=== PATIENT | male | born 1995 | race Caucasian/White ===

== ENCOUNTER 2018-03-02 15:24 | Emergency (ER) | payer OTHER, MEDICAID, SELFPAY ==
[2018-03-02 15:54] VITALS: BP 121/81; PULSE 128; RESP 20; TEMP 37.3; O2SAT 95; BMI 28.5
[2018-03-02 16:01] VITALS: PULSE 118; RESP 12; O2SAT 98
[2018-03-02] MEDS: ALBUTEROL/IPRATROPIUM 3 ML AMPUL INH (16:03)
--- NOTE | 2018-03-02 16:05 | DI.RAD.S_ITS ---
PROCEDURE: XR CHEST 1V INDICATIONS: cough sob TECHNIQUE: One view of the chest was acquired. COMPARISON: None. FINDINGS: Surgical changes and devices: None. Lungs and pleura: There are diffuse reticular opacities throughout both lungs. Focal pulmonary opacities are present within the right lower lung and the left midlung. Focal pulmonary opacities are present at the right medial lung base as well. There is a small right pleural effusion. No pneumothorax. Mediastinum: Mediastinal contours appear normal. Heart size is normal. Bones and chest wall: No suspicious bony lesions. Overlying soft tissues appear unremarkable. IMPRESSION: 1. Small pleural effusion and increased interstitial opacity suggesting fluid overload. Differential considerations include infectious pneumonitis. 2. Multifocal pulmonary opacities suspicious for aspiration/infection. These findings may be consistent with multifocal pneumonia. Dictated by: Margarita Manriquez M.D. on 03/02/2018 at 16:41 Approved by: Margarita Manriquez M.D. on 03/02/2018 at 16:42
[2018-03-02] MEDS: LACTATED RINGERS 2,857.62 ML 952.54 ML IV (16:34)
[2018-03-02 16:40] LABS: Add Manual Diff / Slide Review NO; Basophils Percent Auto 1.2 % (0-2); Eosinophils Percent Auto 2.8 % (2-4); Hematocrit 35.4 % (41-53); Lymphocytes Percent Auto 13.3 % (25-40); Mean Corpuscular HGB Conc 33.8 % (30-36); Mean Corpuscular Hemoglobin 27.5 PG (26-34); Mean Corpuscular Volume 81.1 fL (80-100); Monocytes Percent Auto 12.4 % (3-14); Neutrophils Absolute Auto 7800 /uL (3000-5900); Neutrophils Percent Auto 70.3 % (50-75); Platelet Count 565 X10^3/uL (150-400); Red Blood Cell Count 4.37 X10^6/uL (4.5-5.9); Red Cell Distribution Width 14.4 % (11.6-14.8); White Blood Cell Count 11.1 X10^3/uL (4.5-11.0)
[2018-03-02 16:44] LABS: Lactate (Lactic Acid) 1.1 mmol/L (0.7-2.1)
[2018-03-02 16:45] VITALS: BP 122/77; PULSE 104; RESP 18; O2SAT 96
[2018-03-02 16:45] LABS: Alanine Aminotransferase 51 IU/L (21-72); Alkaline Phosphatase 110 U/L (38-126); Aspartate Aminotransferase 44 IU/L (17-59); BUN Creatinine Ratio 13.6 (6-22); Bilirubin Total 0.9 mg/dL (0.2-1.3); Blood Urea Nitrogen 15 mg/dL (9-20); Calcium 9.2 mg/dL (8.4-10.2); Carbon Dioxide 26 mmol/L (22-32); Chloride 101 mmol/L (98-107); Estimated Glomerular Filt Rate > 60.0 mL/min (>60); Glucose 96 mg/dL (70-100); HEMOLYSIS < 15 (0-50); Potassium 4.2 mmol/L (3.4-5.1); Sodium 140 mmol/L (137-145)
--- NOTE | 2018-03-02 17:21 | PC.NURSE ---
MD aware of throbbing pain to rt flank.
[2018-03-02 17:22] LABS: B Type Natriuretic Peptide < 100.0 (<100)
--- NOTE | 2018-03-02 17:33 | DI.CT.S_ITS ---
PROCEDURE: CT ABDOMEN PELVIS W CON INDICATIONS: renal cancer with nephrectomy TECHNIQUE: After the administration of intravenous contrast, 5 mm thick sections acquired from the diaphragm to the symphysis. 5 mm coronal and sagittal reformats were acquired. For radiation dose reduction, the following was used: automated exposure control, adjustment of mA and/or kV according to patient size. COMPARISON: None. FINDINGS: Image quality: Excellent. ABDOMEN: Lung bases: Innumerable spiculated pulmonary metastases are visualized at the lung bases. There are small low density bilateral pleural effusions. Enhancing mass lesions are present within the right pleural effusion suggesting pleural metastasis. There is circumferential wall thickening of the distal esophagus. Solid organs: Multiple hypodense lesions are present throughout the liver consistent with hepatic metastasis. There is a small amount of low-density perihepatic and perisplenic free fluid. The spleen measures 13.8 cm in length. The gallbladder is unremarkable. The right kidney is surgically absent. The right adrenal gland is unremarkable. The left adrenal gland has a normal appearance. The left kidney demonstrates normal size and enhancement. A small low density cortical cyst is present within the midpole. The pancreas demonstrates normal size and enhancement. Peritoneum and bowel: Bowel loops demonstrate normal wall thickness and caliber. Low-density fluid is present within the pelvis. There is some enhancement along the posterior margins of this fluid. Nodes and vessels: There is massive retroperitoneal adenopathy. This encases the inferior vena cava and displaces it anteriorly. There is narrowing of the left renal artery secondary to adenopathy. Enhancing soft tissue is present within the right renal fossa. There is enhancement of the mesentery within the right lower quadrant and the pelvis consistent with peritoneal carcinomatosis. Miscellaneous: No ventral hernias. PELVIS: Genitourinary: The bladder is decompressed. Miscellaneous: No inguinal hernias or adenopathy. Bones: No suspicious bony lesions. No vertebral body compression fractures. IMPRESSION: 1. Innumerable pulmonary metastases in the bilateral lung bases. Low-density pleural effusions and right pleural metastases. 2. Multiple hepatic hypodensities consistent with diffuse hepatic metastasis. 3. 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 4. Enhancing soft tissue mass within the right renal fossa consistent with tumor recurrence. 5. Enhancing mesenteric implants consistent with peritoneal carcinomatosis. 6. Low-density free pelvic fluid with rim enhancement. Although this finding can be associated with pelvic abscess, given the extensive intra-abdominal metastasis, peritoneal metastasis is favored. However, please correlate with laboratory values and clinical history. 7. Circumferential thickening of the distal esophagus. Differential considerations include tumor infiltration and esophagitis. Dictated by: Margarita Manriquez M.D. on 03/02/2018 at 18:53 Approved by: Margarita Manriquez M.D. on 03/02/2018 at 18:59
--- NOTE | 2018-03-02 17:33 | DI.CT.S_ITS ---
PROCEDURE: CT ANGIO CHEST PE PROTOCOL INDICATIONS: cough sob known renal cancer TECHNIQUE: After the administration of intravenous contrast, 2 mm thick sections acquired from the pulmonary apices to the posterior costophrenic angles. 3-dimensional maximum intensity projection (MIP) coronal and sagittal reformats were then acquired through the thorax. For radiation dose reduction, the following was used: automated exposure control, adjustment of mA and/or kV according to patient size. COMPARISON: None. FINDINGS: Image quality: Excellent. Pulmonary arteries: Pulmonary arteries are normal in size, and demonstrate no intraluminal filling defects to suggest central pulmonary embolism. Lungs and pleura: There are innumerable spiculated pulmonary nodules bilaterally which range in size from 1-2 mm in diameter to 2.5 cm in diameter in the left lower lobe. There are small low density bilateral pleural effusions and compressive atelectasis. Within the right pleural fluid there are enhancing nodular lesions the largest of which measures approximately 2.9 cm in diameter. Mediastinum: Heart size is normal, without pericardial effusion. There is extensive hilar and mediastinal adenopathy. For example, the subcarinal donovan mass measures 2.7 cm in the short axis diameter. The largest right hilar lymph node measures approximately 2.6 cm in diameter. Thoracic aorta is normal in caliber and enhancement. There is circumferential thickening of the distal esophagus. Bones and chest wall: No suspicious bony lesions. Ribs and thoracic spine appear intact throughout. A 0.8 x 1.4 cm hypodensity is present within the right thyroid lobe. The left thyroid lobe is unremarkable. No axillary or supraclavicular adenopathy. Abdomen: Please see detailed description of the abdominal findings on the associated CT of the abdomen from the same date. IMPRESSION: 1. Innumerable pulmonary metastases, extensive hilar adenopathy, and mediastinal adenopathy as above. 2. No acute pulmonary embolus. 3. Small low density bilateral pleural effusions. Enhancing nodules within the right pleural effusion suggest pleural metastases. 4. Right thyroid nodule. If further characterization is warranted, nonemergent thyroid ultrasound would be helpful. 5. Please see the CT of the abdomen for a detailed description of the abdominal findings. Dictated by: Margarita Manriquez M.D. on 03/02/2018 at 18:38 Approved by: Margarita Manriquez M.D. on 03/02/2018 at 18:45
[2018-03-02 18:16] VITALS: BP 137/80; PULSE 99; RESP 16; O2SAT 96
[2018-03-02] MEDS: MORPHINE 2 MG/ML INJ IV (18:19)
--- NOTE | 2018-03-02 18:41 | PC.NURSE ---
Late entry: Urine is very dark and concentrated.
--- NOTE | 2018-03-02 18:46 | ED_ITS ---
HPI - URI/Sore Throat General Chief Complaint: Upper Respiratory Symptoms Stated Complaint: COUGHING THROWING UP NOT ABLE TO EAT Time Seen by Provider: 03/02/18 16:04 Source: patient Mode of arrival: ambulatory Limitations: no limitations History of Present Illness HPI Narrative: Patient is a 22-year-old male with stage IV renal cancer. He has a nephrectomy and was told by [facility] other was no chemo or radiation all available. So he is currently seeing a field property loss specialist. He has been having a nonproductive worsening cough over the last couple weeks. He was placed on minocycle by his natropath the next 60 days for an infection after mono. He says his cough is getting worse. He has not had fever or chills but he is noted to be quite tachycardic in the 130s to 40s here in the ED. He says he has coughing episodes where he coughed so much that he throws up. He Related Data Home Medications Medication Instructions Recorded Confirmed Curmin 500 PO BID 11/02/17 Multi-Vitamin HP/Minerals QDAY 11/02/17 Reishi Mushrooms 3 PO TID 11/02/17 ascorbic acid (vitamin C) [Vitamin 500 mg PO BID 11/02/17 11/02/17 C] naltrexone-bupropion 4.5 PO QDAY 11/02/17 vit D3-folic [id number]-B12 1 tab PO DAILY 11/02/17 11/02/17 Previous Rx's Medication Instructions Recorded EPINEPHRINE (#EPI-PEN) 0.3 mg MR PRN #1 11/23/11 sunitinib [Sutent] 50 mg PO QDAY #28 cap 08/22/17 hydrocodone-acetaminophen [Melvern] 1 tab PO Q6H PRN #14 tab 03/02/18 Allergies Allergy/AdvReac Type Severity Reaction Status Date / Time Bee Venom Allergy Intermediate SWELLING Uncoded 03/02/18 15:57 Review of Systems Review of Systems All systems reviewed & are unremarkable except as noted in HPI and below Constitutional Denies chills, Reports fatigue, Denies fever(s) and Denies headache(s) ENT Ears, Nose, Mouth, and Throat: Denies headache(s) Cardiovascular Denies chest pain, Denies irregular heart rhythm, Denies lightheadedness, Denies palpitations and Denies orthopnea Respiratory Reports as per HPI Gastrointestinal Gastrointestinal: Denies abdominal pain, Denies change in bowel habits, Denies diarrhea, Denies nausea and Denies vomiting Musculoskeletal Denies back pain, Denies muscle weakness, Denies numbness and Denies tingling Integumentary/Breasts Denies pruritus, Denies erythema, Denies rash and Denies wounds Neurologic Denies headache(s), Denies numbness and Denies tingling Endocrine Reports fatigue and Denies palpitations Hematologic/Lymphatic Denies easy bruising PFSH Medical History Renal cancer (Acute) Social History Smoking Status: Former smoker Exam Initial Vital Signs Initial Vital Signs: Vital Signs Temperature 99.1 F 03/02/18 15:54 Pulse Rate 128 H 03/02/18 15:54 Respiratory Rate 20 03/02/18 15:54 Blood Pressure 121/81 03/02/18 15:54 Pulse Oximetry 95 03/02/18 15:54 GENERAL: Pale young male coughing HEENT: Head atraumatic,EOMI, pupils reactive, face symmetric, neck is supple no JVD no meningeal sign CARDIOVASCULAR: Regular rate and rhythm without murmurs, rubs or gallops. RESPIRATORY: See can speak in full sentences but deep breathing produces coughing episodes, clear bilaterally no wheezes rales or rhonchi ABDOMEN: Soft, mild tenderness on right side no guarding no rebound EXTREMITIES: Normal range of motion, no clubbing or edema. Neurovascularly intact NEUROLOGICAL: Alert and oriented x4.Normal gait and speech. Cranial nerves II through XII grossly intact. SKIN: Warm, dry, no laceration, no petechiae, no rashes or lesions. Course Orders Ordered: Discontinued Medications Hydrocodone Bitart/Acetaminophen (Vicodin Prepack) 1 bottle [facility] [facility] ONE Stop: 03/02/18 19:40 Last Admin: 03/02/18 19:40 Dose: 1 bottle Albuterol (Ventolin Hfa Prepack) [facility] box [facility] Stop: 03/02/18 19:28 Last Admin: 03/02/18 19:28 Dose: 1 box Albuterol/Ipratropium (Duoneb) 3 ml INH NOW ONE Stop: 03/02/18 16:01 Last Admin: 03/02/18 16:03 Dose: 3 ml Albuterol/Ipratropium (Duoneb) 3 ml INH NOW ONE Stop: 03/02/18 16:06 Last Admin: 03/02/18 17:20 Dose: Lactated Ringer's (Lactated Ringers) 2,857.62 mls @ 952.54 mls/hr 30 ml/kg infuse over 3 hr (2857.62 ml) IV CONT RON Last Infusion: 03/02/18 19:38 Dose: 0 mls/hr Admin: 03/02/18 16:34 Dose: 952.54 mls/hr Morphine Sulfate (Morphine) 2 mg IV NOW ONE Stop: 03/02/18 18:17 Last Admin: 03/02/18 18:19 Dose: 2 mg Vital Signs - 8 hr 03/02/18 15:54 03/02/18 16:01 03/02/18 16:45 Temperature 99.1 F Pulse Rate 128 H 118 H 104 H Respiratory Rate 20 12 18 Blood Pressure 121/81 Blood Pressure [Right Arm] 122/77 Pulse Oximetry 95 98 96 03/02/18 18:16 Temperature Pulse Rate 99 H Respiratory Rate 16 Blood Pressure Blood Pressure [Right Arm] 137/80 Pulse Oximetry 96 MDM - URI/Sore Throat Lab Data Attestation: I reviewed the patient's lab results. Result diagrams: 03/02/18 16:15 03/02/18 16:15 Lab Results 03/02/18 03/02/18 03/02/18 Range/Units 16:15 16:15 16:15 WBC 11.1 H (4.5-11.0) X10^3/uL RBC 4.37 L (4.5-5.9) X10^6/uL Hgb 12.0 L (13.5-17.5) g/dL Hct 35.4 L (41-53) % MCV 81.1 (80-100) fL MCH 27.5 (26-34) PG MCHC 33.8 (30-36) % RDW 14.4 (11.6-14.8) % Plt Count 565 H (150-400) X10^3/uL Neut % (Auto) 70.3 (50-75) % Lymph % (Auto) 13.3 L (25-40) % Becker % (Auto) 12.4 (3-14) % Eos % (Auto) 2.8 (2-4) % Baso % (Auto) 1.2 (0-2) % Neut # (Auto) 7800 H (2704-9765) /uL Sodium 140 (137-145) mmol/L Potassium 4.2 (3.4-5.1) mmol/L Chloride 101 (98-107) mmol/L Carbon Dioxide 26 (22-32) mmol/L BUN 15 (9-20) mg/dL Creatinine 1.10 (0.66-1.25) mg/dL Estimated GFR > 60.0 (>60) mL/min BUN/Creatinine Ratio 13.6 (6-22) Glucose 96 (70-100) mg/dL Lactate (0.7-2.1) mmol/L Calcium 9.2 (8.4-10.2) mg/dL Total Bilirubin 0.9 (0.2-1.3) mg/dL AST 44 (17-59) IU/L ALT 51 (21-72) IU/L Alkaline Phosphatase 110 (38-126) U/L B-Natriuretic Peptide (<100) Total Protein 8.0 (6.3-8.2) g/dL Albumin 4.0 (3.5-5.0) g/dL Globulin 4.0 (1.7-4.1) g/dL Albumin/Globulin Ratio 1.0 (1.0-2.8) Procalcitonin 0.10 (<0.5) ng/mL 03/02/18 03/02/18 Range/Units 16:15 16:15 WBC (4.5-11.0) X10^3/uL RBC (4.5-5.9) X10^6/uL Hgb (13.5-17.5) g/dL Hct (41-53) % MCV (80-100) fL MCH (26-34) PG MCHC (30-36) % RDW (11.6-14.8) % Plt Count (150-400) X10^3/uL Neut % (Auto) (50-75) % Lymph % (Auto) (25-40) % Becker % (Auto) (3-14) % Eos % (Auto) (2-4) % Baso % (Auto) (0-2) % Neut # (Auto) (8986-2099) /uL Sodium (137-145) mmol/L Potassium (3.4-5.1) mmol/L Chloride (98-107) mmol/L Carbon Dioxide (22-32) mmol/L BUN (9-20) mg/dL Creatinine (0.66-1.25) mg/dL Estimated GFR (>60) mL/min BUN/Creatinine Ratio (6-22) Glucose (70-100) mg/dL Lactate 1.1 (0.7-2.1) mmol/L Calcium (8.4-10.2) mg/dL Total Bilirubin (0.2-1.3) mg/dL AST (17-59) IU/L ALT (21-72) IU/L Alkaline Phosphatase (38-126) U/L B-Natriuretic Peptide < 100.0 (<100) Total Protein (6.3-8.2) g/dL Albumin (3.5-5.0) g/dL Globulin (1.7-4.1) g/dL Albumin/Globulin Ratio (1.0-2.8) Procalcitonin (<0.5) ng/mL Imaging Data CT PE: Radiologist's impression: PROCEDURE: CT ANGIO CHEST PE PROTOCOL INDICATIONS: cough sob known renal cancer TECHNIQUE: After the administration of intravenous contrast, 2 mm thick sections acquired from the pulmonary apices to the posterior costophrenic angles. 3-dimensional maximum intensity projection (MIP) coronal and sagittal reformats were then acquired through the thorax. For radiation dose reduction, the following was used: automated exposure control, adjustment of mA and/or kV according to patient size. COMPARISON: None. FINDINGS: Image quality: Excellent. Pulmonary arteries: Pulmonary arteries are normal in size, and demonstrate no intraluminal filling defects to suggest central pulmonary embolism. Lungs and pleura: There are innumerable spiculated pulmonary nodules bilaterally which range in size from 1-2 mm in diameter to 2.5 cm in diameter in the left lower lobe. There are small low density bilateral pleural effusions and compressive atelectasis. Within the right pleural fluid there are enhancing nodular lesions the largest of which measures approximately 2.9 cm in diameter. Mediastinum: Heart size is normal, without pericardial effusion. There is extensive hilar and mediastinal adenopathy. For example, the subcarinal donovan mass measures 2.7 cm in the short axis diameter. The largest right hilar lymph node measures approximately 2.6 cm in diameter. Thoracic aorta is normal in caliber and enhancement. There is circumferential thickening of the distal esophagus. Bones and chest wall: No suspicious bony lesions. Ribs and thoracic spine appear intact throughout. A 0.8 x 1.4 cm hypodensity is present within the right thyroid lobe. The left thyroid lobe is unremarkable. No axillary or supraclavicular adenopathy. Abdomen: Please see detailed description of the abdominal findings on the associated CT of the abdomen from the same date. IMPRESSION: 1. Innumerable pulmonary metastases, extensive hilar adenopathy, and mediastinal adenopathy as above. 2. No acute pulmonary embolus. 3. Small low density bilateral pleural effusions. Enhancing nodules within the right pleural effusion suggest pleural metastases. 4. Right thyroid nodule. If further characterization is warranted, nonemergent thyroid ultrasound would be helpful. 5. Please see the CT of the abdomen for a detailed description of the abdominal findings. Dictated by: Margarita Manriquez M.D. on 03/02/2018 at 18:38 Approved by: Margarita Manriquez M.D. on 03/02/2018 at 18:45 Chest x-ray: Radiologist's impression: PROCEDURE: XR CHEST 1V INDICATIONS: cough sob TECHNIQUE: One view of the chest was acquired. COMPARISON: None. FINDINGS: Surgical changes and devices: None. Lungs and pleura: There are diffuse reticular opacities throughout both lungs. Focal pulmonary opacities are present within the right lower lung and the left midlung. Focal pulmonary opacities are present at the right medial lung base as well. There is a small right pleural effusion. No pneumothorax. Mediastinum: Mediastinal contours appear normal. Heart size is normal. Bones and chest wall: No suspicious bony lesions. Overlying soft tissues appear unremarkable. IMPRESSION: 1. Small pleural effusion and increased interstitial opacity suggesting fluid overload. Differential considerations include infectious pneumonitis. 2. Multifocal pulmonary opacities suspicious for aspiration/infection. These findings may be consistent with multifocal pneumonia. Dictated by: Margarita Manriquez M.D. on 03/02/2018 at 16:41 CT scan - abdomen: Radiologist's impression: [address] [address] [address] Scan Report Signed Patient: Manuel Lo MR#: [id number] : 1995 Acct:[id number] Age/Sex: 22 / M Date of Service: 03/02/18 Loc: ED Accession Number: [id number] Procedure: CT abdomen pelvis w con Ordering Provider: Shayy Garvin D.O. PROCEDURE: CT ABDOMEN PELVIS W CON INDICATIONS: renal cancer with nephrectomy TECHNIQUE: After the administration of intravenous contrast, 5 mm thick sections acquired from the diaphragm to the symphysis. 5 mm coronal and sagittal reformats were acquired. For radiation dose reduction, the following was used: automated exposure control, adjustment of mA and/or kV according to patient size. COMPARISON: None. FINDINGS: Image quality: Excellent. ABDOMEN: Lung bases: Innumerable spiculated pulmonary metastases are visualized at the lung bases. There are small low density bilateral pleural effusions. Enhancing mass lesions are present within the right pleural effusion suggesting pleural metastasis. There is circumferential wall thickening of the distal esophagus. Solid organs: Multiple hypodense lesions are present throughout the liver consistent with hepatic metastasis. There is a small amount of low-density perihepatic and perisplenic free fluid. The spleen measures 13.8 cm in length. The gallbladder is unremarkable. The right kidney is surgically absent. The right adrenal gland is unremarkable. The left adrenal gland has a normal appearance. The left kidney demonstrates normal size and enhancement. A small low density cortical cyst is present within the midpole. The pancreas demonstrates normal size and enhancement. Peritoneum and bowel: Bowel loops demonstrate normal wall thickness and caliber. Low-density fluid is present within the pelvis. There is some enhancement along the posterior margins of this fluid. Nodes and vessels: There is massive retroperitoneal adenopathy. This encases the inferior vena cava and displaces it anteriorly. There is narrowing of the left renal artery secondary to adenopathy. Enhancing soft tissue is present within the right renal fossa. There is enhancement of the mesentery within the right lower quadrant and the pelvis consistent with peritoneal carcinomatosis. Miscellaneous: No ventral hernias. PELVIS: Genitourinary: The bladder is decompressed. Miscellaneous: No inguinal hernias or adenopathy. Bones: No suspicious bony lesions. No vertebral body compression fractures. IMPRESSION: 1. Innumerable pulmonary metastases in the bilateral lung bases. Low-density pleural effusions and right pleural metastases. 2. Multiple hepatic hypodensities consistent with diffuse hepatic metastasis. 3. 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 4. Enhancing soft tissue mass within the right renal fossa consistent with tumor recurrence. 5. Enhancing mesenteric implants consistent with peritoneal carcinomatosis. 6. Low-density free pelvic fluid with rim enhancement. Although this finding can be associated with pelvic abscess, given the extensive intra-abdominal metastasis, peritoneal metastasis is favored. However, please correlate with laboratory values and clinical history. 7. Circumferential thickening of the distal esophagus. Differential considerations include tumor infiltration and esophagitis. Dictated by: Margarita Manriquez M.D. on 03/02/2018 at 18:53 Approved by: Margarita Manriquez M.D. on 03/02/2018 at 18:59 [facility] Narrative Medical decision making narrative: Patient does better after albuterol. His heart rate initially was quite fast and 140. It did improve also with aggressive IV fluid hydration. He does not have leukocytosis elevated lactate. No obvious source of infection though he has been taking minocycline. CT shows pulmonary Mets but no pulmonary embolism. Abdominal CT does show extensive cancer as well. I have discussed these findings with the patient and his mother. They knew that this would happen. On at this time they are looking for to a vacation for 2 weeks. He is given a spacer and teaching, at this time if they would like to continue the minocycline they may. I also recommended that if he have other episodes that he stop off at the nearest ED for IV fluids. Discharge Plan Departure Patient Disposition: Home Clinical Impression: Renal cell cancer Discharge Date/Time: 03/02/18 19:56 Interventions: ED Discharge Assessment Last Done: 03/02/18 19:55 Instructions: DI for Reactive Airway Disease-Adult Activity Restrictions/Additional Instructions: *You have been diagnosed with renal cell cancer with bronchospasm *What to do: Stay hydrated increase fluids *Continue to take medications as directed Use albuterol inhaler every 4 hr if needed for coughing episodes The Melvern 1 tablet every 4 hr or 2 tablets every 6 hr if needed for severe pain *Follow up with your primary care provider in 2-3 days *Return to ER if you should have any new, worsening or concerning symptoms CONTROLLED SUBSTANCE DISCHARGE (Narcotoic/benzodiazepine/Flexeril/Phenergan) 1. You have been prescribed narcotic medications, it does have acetaminophen/ Tylenol/paracetamol in it so do not take extra Tylenol or Tylenol containing products 2. Please understand that we cannot provide further refills of narcotics, benzodiazepines or controlled substances through the ED and her pain management will need to be through your provider. 3. While on these medications you cannot drive or operate heavy machinery. 4. You cannot sign legal documents or perform any duties such as this. 5. As long as you're taking opiate pain medications he should also be taking a stool softener such as Colace, Dulcolax, MiraLAX or prune juice, to help avoid constipation. Prescriptions: New hydrocodone-acetaminophen [Melvern] 5-325 mg tablet 1 tab PO Q6H PRN (Reason: pain (scale score 4-6)) Qty: 14 RF: 0 No Action EPINEPHRINE (#EPI-PEN) 0.3 mg MR PRN Qty: 1 RF: 1 sunitinib [Sutent] 50 MG capsule 50 mg PO QDAY Qty: 28 RF: 1 vit D3-folic uvun-[id number]-B12 2,000-800-0.32 unit-mcg-mg Tablet 1 tab PO DAILY RF: 0 Curmin 500 mg capsule 500 PO BID RF: 0 ascorbic acid (vitamin C) [Vitamin C] 1,000 mg Tablet 500 mg PO BID RF: 0 naltrexone-bupropion 8-90 mg Tablet Extended Release 4.5 PO QDAY RF: 0 Multi-Vitamin HP/Minerals QDAY RF: 0 Reishi Mushrooms 250 mg 3 PO TID RF: 0
[2018-03-02] MEDS: ALBUTEROL HFA PREPACK 1 BOX MISC (19:28)
[2018-03-02 19:30] VITALS: BP 139/76; PULSE 99; RESP 18; O2SAT 97
[2018-03-02] MEDS: HYDROCODONE/ACET 5/325 PREPACK 1 BOTTLE MISC (19:40)
[2018-03-02 19:55] VITALS: BP 120/71; PULSE 95; RESP 18; O2SAT 95
== END 2018-03-02 19:56 | disposition home or self-care (01) ==
PROVIDERS: Emergency Provider Emergency Medicine; Family Provider Family Medicine; PCP Family Medicine
DX: C64.9 Malignant neoplasm of unspecified kidney, except renal pelvis (principal); R05 Cough
CPT/HCPCS: 36415; 36591; 71045; 71275; 74177; 80053; 83605; 83880; 84145; 85025; 87040; 94640; 96361; 96374; 99284; 99285; J2270; Q9967

== ENCOUNTER 2018-03-12 21:07 | Emergency (ER) | payer OTHER, MEDICAID, SELFPAY ==
[2018-03-12 21:15] VITALS: BP 137/94; PULSE 129; RESP 30; TEMP 37.2; O2SAT 96
--- NOTE | 2018-03-12 21:15 | ED_ITS ---
HPI - General Adult General Chief complaint: Nausea/Vomiting/Diarrhea Stated complaint: THINKS DEHYDRATED Time Seen by Provider: 03/12/18 21:09 Source: patient Mode of arrival: ambulatory Limitations: no limitations History of Present Illness HPI narrative: patient is a 22-year-old male with known renal cell carcinoma who is been referred to hospice. Not currently undergoing chemotherapy or radiation. States that he is here for concerns of dehydration. He was seen here in the emergency department earlier this month for this and was tachycardic and received 3 L of fluids and albuterol on improved his symptoms significantly. He states that he feels like that again. Has had his chronic cough. Did uses albuterol prior to arrival. Has his normal pain. Related Data Home Medications Medication Instructions Recorded Confirmed Curmin 500 PO BID 11/02/17 Multi-Vitamin HP/Minerals QDAY 11/02/17 Reishi Mushrooms 3 PO TID 11/02/17 ascorbic acid (vitamin C) [Vitamin 500 mg PO BID 11/02/17 11/02/17 C] naltrexone-bupropion 4.5 PO QDAY 11/02/17 vit D3-folic [id number] 1 tab PO DAILY 11/02/17 11/02/17 liothyronine 25 mcg PO DAILY 03/05/18 03/05/18 Previous Rx's Medication Instructions Recorded EPINEPHRINE (#EPI-PEN) 0.3 mg MR PRN #1 11/23/11 sunitinib [Sutent] 50 mg PO QDAY #28 cap 08/22/17 hydrocodone-acetaminophen [[place]] 1 tab PO Q6H PRN #14 tab 03/02/18 albuterol sulfate 2 puff INHALATION Q4-6H PRN #1 g 03/12/18 hydrocodone-acetaminophen [[place]] 2 tab PO Q4H PRN 14 Days #100 tab 03/12/18 nystatin 2 ml PO QID 10 Days #200 ml 03/13/18 Allergies Allergy/AdvReac Type Severity Reaction Status Date / Time Bee Venom Allergy Intermediate SWELLING Uncoded 03/02/18 15:57 Review of Systems Constitutional Reports chills, Reports fatigue, Denies headache(s) and Reports lethargy ENT Ears, Nose, Mouth, and Throat: Denies headache(s) Cardiovascular Denies chest pain and Reports dyspnea Respiratory Reports cough, Reports dyspnea and Reports wheezing Gastrointestinal Gastrointestinal: Reports abdominal pain, Reports nausea and Reports vomiting Musculoskeletal Reports myalgias Integumentary/Breasts Reports lesions and Reports rash Neurologic Denies headache(s) Endocrine Reports fatigue Allergic/Immunologic Reports wheezing [facility] Medical History Renal cancer (Acute) Surgical History No pertinent past surgical history (Acute) Social History Smoking Status: Former smoker Exam Initial Vital Signs Initial Vital Signs: Vital Signs Temperature 98.9 F 03/12/18 21:15 Pulse Rate 129 H 03/12/18 21:15 Respiratory Rate 30 H 03/12/18 21:15 Blood Pressure 137/94 H 03/12/18 21:15 Pulse Oximetry 96 03/12/18 21:15 Const General: cooperative, frail appearing, ill appearing and lethargic Resp Auscultation: rales and wheezes Cardio Rate: tachycardic Rhythm: regular rhythm GI Palpation: soft and No tender Skin Lesions: no lesions Rashes: no rashes Other: Pale Neuro General: alert, awake and oriented x3 Extrem Other: decreased capillary refill Psych Appearance: grossly normal Course Orders Ordered: ED Orders 03/12/18 21:30 Basic Metabolic Panel Stat Complete Blood Count AUTO DIFF Stat Discontinued Medications Hydromorphone HCl (Dilaudid) 0.5 mg IV NOW ONE Stop: 03/12/18 21:34 Last Admin: 03/12/18 21:44 Dose: 0.5 mg Hydromorphone HCl (Dilaudid) 0.5 mg IV NOW ONE Stop: 03/12/18 23:15 Last Admin: 03/12/18 23:22 Dose: 0.5 mg Sodium Chloride (Normal Saline 0.9%) 1,000 mls @ 1,000 mls/hr IV BOLUS ONE Stop: 03/12/18 22:29 Last Infusion: 03/12/18 22:57 Dose: 0 mls/hr Admin: 03/12/18 21:44 Dose: 1,000 mls/hr Sodium Chloride (Normal Saline 0.9%) 1,000 mls @ 1,000 mls/hr IV BOLUS ONE Stop: 03/12/18 23:21 Last Admin: 03/12/18 23:22 Dose: 1,000 mls/hr Lactated Ringer's (Lactated Ringers) 1,000 mls @ 1,000 mls/hr IV BOLUS ONE Stop: 03/13/18 00:10 Last Admin: 03/12/18 23:22 Dose: 1,000 mls/hr Ondansetron HCl (Zofran) 4 mg IV NOW ONE Stop: 03/12/18 21:34 Last Admin: 03/12/18 21:44 Dose: 4 mg Vital Signs - 8 hr 03/12/18 21:15 Temperature 98.9 F Pulse Rate 129 H Respiratory Rate 30 H Blood Pressure 137/94 H Pulse Oximetry 96 Medical Decision Making Lab Data Lab results reviewed: Yes I reviewed the patient's lab results. Result diagrams: 03/12/18 21:30 03/12/18 21:30 Lab Results 03/12/18 03/12/18 Range/Units 21:30 21:30 WBC 14.4 H (4.5-11.0) X10^3/uL RBC 4.41 L (4.5-5.9) X10^6/uL Hgb 12.0 L (13.5-17.5) g/dL Hct 35.3 L (41-53) % MCV 80.1 (80-100) fL MCH 27.1 (26-34) PG MCHC 33.9 (30-36) % RDW 15.2 H (11.6-14.8) % Plt Count 859 H (150-400) X10^3/uL Neut % (Auto) 79.1 H (50-75) % Lymph % (Auto) 8.2 L (25-40) % [place] % (Auto) 11.0 (3-14) % Eos % (Auto) 1.4 L (2-4) % Baso % (Auto) 0.3 (0-2) % Neut # (Auto) 59121 H (4700-7081) /uL RBC Morphology Not Reportable Anisocytosis 1+ H Sodium 140 (137-145) mmol/L Potassium 4.5 (3.4-5.1) mmol/L Chloride 98 (98-107) mmol/L Carbon Dioxide 29 (22-32) mmol/L BUN 13 (9-20) mg/dL Creatinine 0.90 (0.66-1.25) mg/dL Estimated GFR > 60.0 (>60) mL/min BUN/Creatinine Ratio 14.4 (6-22) Glucose 92 (70-100) mg/dL Calcium 9.0 (8.4-10.2) mg/dL MDM Narrative Medical decision making narrative: The patient received 2 L of normal saline and 1 L of lactated Ringer's. He states that he feels much better. Did receive pain medication here in the ER. Did tolerate oral intake. Had a discussion with him and his mother regarding his symptoms and after this discussion we did not do any more testing except for CBC and a chemistry. Patient's goal is to make it through a vacation that he is scheduled next week to see family. Will also send home with a prescription for nystatin. Patient was given return precautions. He expressed understanding and agreement with plan. Discharge Plan Departure Patient Disposition: Home Clinical Impression: Dehydration Instructions: Dehydration Activity Restrictions/Additional Instructions: return to the emergency department for any new or worsening symptoms Prescriptions: New nystatin 100,000 unit/mL suspension 2 ml PO QID 10 Days Qty: 200 RF: 0 No Action EPINEPHRINE (#EPI-PEN) 0.3 mg MR PRN Qty: 1 RF: 1 sunitinib [Sutent] 50 MG capsule 50 mg PO QDAY Qty: 28 RF: 1 hydrocodone-acetaminophen [[place]] 5-325 mg tablet 1 tab PO Q6H PRN (Reason: pain (scale score 4-6)) Qty: 14 RF: 0 vit D3-folic [id number] 2,000-800-0.32 unit-mcg-mg Tablet 1 tab PO DAILY RF: 0 Curmin 500 mg capsule 500 PO BID RF: 0 ascorbic acid (vitamin C) [Vitamin C] 1,000 mg Tablet 500 mg PO BID RF: 0 naltrexone-bupropion 8-90 mg Tablet Extended Release 4.5 PO QDAY RF: 0 Multi-Vitamin HP/Minerals QDAY RF: 0 Reishi Mushrooms 250 mg 3 PO TID RF: 0 liothyronine 25 mcg Tablet 25 mcg PO DAILY RF: 0 hydrocodone-acetaminophen [[place]] 5-325 mg Tablet 2 tab PO Q4H PRN (Reason: Pain (Scale Score 4-6)) 14 Days Qty: 100 RF: 0 albuterol sulfate 90 mcg/actuation Hfa Aerosol Inhaler 2 puff INHALATION Q4-6H PRN (Reason: Shortness Of Breath) Qty: 1 RF: 6
[2018-03-12 21:41] LABS: Add Manual Diff / Slide Review NO; Basophils Percent Auto 0.3 % (0-2); Eosinophils Percent Auto 1.4 % (2-4); Hematocrit 35.3 % (41-53); Lymphocytes Percent Auto 8.2 % (25-40); Mean Corpuscular HGB Conc 33.9 % (30-36); Mean Corpuscular Hemoglobin 27.1 PG (26-34); Mean Corpuscular Volume 80.1 fL (80-100); Neutrophils Absolute Auto 11400 /uL (3000-5900); Neutrophils Percent Auto 79.1 % (50-75); Platelet Count 859 X10^3/uL (150-400); Red Blood Cell Count 4.41 X10^6/uL (4.5-5.9); Red Cell Distribution Width 15.2 % (11.6-14.8); White Blood Cell Count 14.4 X10^3/uL (4.5-11.0)
[2018-03-12] MEDS: HYDROMORPHONE 0.5 MG INJ IV ×2 (21:44→23:22)
[2018-03-12] MEDS: ONDANSETRON 4 MG/2 ML INJ IV (21:44)
[2018-03-12] MEDS: SODIUM CHLORIDE 0.9% 1,000 ML 1000 ML IV ×2 (21:44→23:22)
[2018-03-12 21:48] LABS: BUN Creatinine Ratio 14.4 (6-22); Blood Urea Nitrogen 13 mg/dL (9-20); Carbon Dioxide 29 mmol/L (22-32); Chloride 98 mmol/L (98-107); Estimated Glomerular Filt Rate > 60.0 mL/min (>60); Glucose 92 mg/dL (70-100); HEMOLYSIS < 15 (0-50); Potassium 4.5 mmol/L (3.4-5.1); Sodium 140 mmol/L (137-145)
--- NOTE | 2018-03-12 21:57 | PC.NURSE ---
pt reports acute on chronic abd pain/nausea/vomiting/diarrhea x1 month that has worsened over the last several days, states r/t met renal CA, requesting IV hydration, seen in ED two weeks ago for same, pt reports he has an appt with hospice later this week, states goal of care as feel good enough to go to [place] to see relatives, MD present at time of exam.
[2018-03-12 21:58] LABS: Anisocytosis 1+
[2018-03-12] MEDS: LACTATED RINGERS 1,000 ML 1000 ML IV (23:22)
[2018-03-13] MEDS: HYDROCODONE/ACET 5/325 PREPACK 1 BOTTLE MISC (00:38)
[2018-03-13 00:49] VITALS: BP 126/78; PULSE 94; RESP 14; O2SAT 94
--- NOTE | 2018-03-13 10:02 | PC.NURSE ---
prior auth for hydrocodone/acetaminophen submitted to [email or web address] by Lita Cavanaugh
== END 2018-03-13 00:50 | disposition home or self-care (01) ==
PROVIDERS: Emergency Provider Emergency Medicine; Family Provider Family Medicine; PCP Family Medicine
DX: E86.0 Dehydration (principal)
CPT/HCPCS: 36591; 80048; 85025; 96361; 96374; 96375; 96376; 99283; 99284; J1170; J2405

== ENCOUNTER 2018-04-07 10:17 | Emergency (ER) | payer OTHER, MEDICAID, SELFPAY ==
[2018-04-07 10:30] VITALS: BP 126/80; PULSE 138; RESP 20; TEMP 36.7; O2SAT 96; BMI 29.8
[2018-04-07 11:08] VITALS: BP 115/72; PULSE 133; RESP 19; O2SAT 96
--- NOTE | 2018-04-07 11:19 | ED.SOB ---
HPI - SOB/Dyspnea General Chief Complaint: Shortness of Breath/Dyspnea Stated Complaint: TROUBLE BREATHING,DEHYDRATED,THROWING UP Time Seen by Provider: 04/07/18 10:50 Source: patient Mode of arrival: wheelchair Limitations: no limitations History of Present Illness Patient is a 22-year-old male who has end stage renal cancer currently on hospice now. He is presenting with increased pain and shortness of breath. Mom says that he is dehydrated not have skin is cracking. He also has known ascites he has some pain in his abdomen. He is here with hospice nurse. He does have some shortness of breath as well, he is chronically on oxygen home. MD Complaint: shortness of breath Related Data Home Medications Medication Instructions Recorded Confirmed Curmin 500 PO BID 11/02/17 Multi-Vitamin HP/Minerals QDAY 11/02/17 Reishi Mushrooms 3 PO TID 11/02/17 ascorbic acid (vitamin C) [Vitamin 500 mg PO BID 11/02/17 11/02/17 C] vit D3-folic [id number] 1 tab PO DAILY 11/02/17 11/02/17 liothyronine 25 mcg PO DAILY 03/05/18 03/05/18 Previous Rx's Medication Instructions Recorded EPINEPHRINE (#EPI-PEN) 0.3 mg MR PRN #1 11/23/11 sunitinib [Sutent] 50 mg PO QDAY #28 cap 08/22/17 hydrocodone-acetaminophen [[place]] 1 tab PO Q6H PRN #14 tab 03/02/18 albuterol sulfate 2 puff INHALATION Q4-6H PRN #1 g 03/12/18 Allergies Allergy/AdvReac Type Severity Reaction Status Date / Time Bee Venom Allergy Intermediate SWELLING Uncoded 03/02/18 15:57 Review of Systems Review of Systems All systems reviewed & are unremarkable except as noted in HPI and below Constitutional Denies chills, Denies fever(s), Reports lethargy and Reports weakness Cardiovascular Denies chest pain, Denies syncope, Reports rapid heart rate and Reports dyspnea on exertion Respiratory Denies cough, Reports pain with cough and Reports dyspnea on exertion Gastrointestinal Gastrointestinal: Reports abdominal pain Musculoskeletal Comments: lower extremity edema Integumentary/Breasts Reports system reviewed and no additional complaints, except as docu Neurologic Denies syncope and Reports weakness [facility] Medical History Renal cancer (Acute) Surgical History No pertinent past surgical history (Acute) Social History Smoking Status: Former smoker Exam Initial Vital Signs Initial Vital Signs: Vital Signs Temperature 98.1 F 04/07/18 10:30 Pulse Rate 138 H 04/07/18 10:30 Respiratory Rate 20 04/07/18 10:30 Blood Pressure 126/80 04/07/18 10:30 Pulse Oximetry 96 04/07/18 10:30 GENERAL: Chronically ill young male HEENT: Head atraumatic,EOMI, pupils reactive, face symmetric CARDIOVASCULAR: Tachycardic no rubs RESPIRATORY: Breath sounds equal bilaterally, no wheezes rales or rhonchi. ABDOMEN: Soft, mild distention no fluid EXTREMITIES: Bilateral lower extremity lymphedema NEUROLOGICAL: Alert and oriented x4.Normal gait and speech. Cranial nerves II through XII grossly intact. SKIN: Warm, dry, no laceration, no petechiae, no rashes or lesions. Course Orders Ordered: ED Orders 04/07/18 13:31 US abdomen limited Stat Discontinued Medications Albuterol (Ventolin) 2.5 mg INH NOW ONE Stop: 04/07/18 12:42 Last Admin: 04/07/18 12:42 Dose: 2.5 mg Hydromorphone HCl (Dilaudid) 1 mg IV NOW ONE Stop: 04/07/18 11:18 Last Admin: 04/07/18 11:43 Dose: 1 mg Hydromorphone HCl (Dilaudid) 1 mg IV NOW ONE Stop: 04/07/18 12:40 Last Admin: 04/07/18 12:42 Dose: 1 mg Hydromorphone HCl (Dilaudid) 1 mg IV NOW ONE Stop: 04/07/18 15:06 Last Admin: 04/07/18 15:11 Dose: 1 mg Sodium Chloride (Normal Saline 0.9%) 1,000 mls @ 500 mls/hr IV BOLUS ONE Stop: 04/07/18 13:16 Last Infusion: 04/07/18 14:00 Dose: 0 mls/hr Admin: 04/07/18 11:42 Dose: 500 mls/hr Ondansetron HCl (Zofran) 4 mg IV NOW ONE Stop: 04/07/18 11:18 Last Admin: 04/07/18 11:43 Dose: 4 mg Ondansetron HCl (Zofran) 4 mg IV NOW ONE Stop: 04/07/18 12:40 Vital Signs - 8 hr 04/07/18 10:30 04/07/18 11:08 04/07/18 12:42 Temperature 98.1 F Pulse Rate 138 H 133 H 73 Respiratory Rate 20 19 14 Blood Pressure 126/80 Blood Pressure [Left Arm] 115/72 Pulse Oximetry 96 96 96 MDM - SOB/Dyspnea MDM Narrative Medical decision making narrative: I spoken with Dr. Luz Rizo, how this physician. She recommends IV fluids and pain control. Patient right now out of portable oxygen. Hospice made arrangements for [place] to deliver oxygen to the emergency department. Patient overall is feeling better with the fluids and Dilaudid. He says the IV pain medication helps more than the oral pain medication. He has generalized pain all over. His abdomen is soft. Ultrasound does not show a nothing fluid to be drained. Otherwise Dr. Gatica said she would do it at home if needed. Dr. Denis will arrange for Dilaudid CRAB BUTCHER at home. Family is agreeable to plan. Discharge Plan Departure Patient Disposition: Home Clinical Impression: Malignant neoplasm of kidney excluding renal pelvis Discharge Date/Time: 04/07/18 15:19 Interventions: ED Discharge Assessment Last Done: 04/07/18 15:52 Instructions: Kidney Cancer Activity Restrictions/Additional Instructions: *You have been diagnosed with renal cancer *What to do: Not enough fluid in abdomen to be drained. Hospice to set up IV pain medications for 2 at home *Continue to take medications as directed *Follow up with your primary care provider in 2-3 days *Return to ER if you should have any new, worsening or concerning symptoms Prescriptions: No Action EPINEPHRINE (#EPI-PEN) 0.3 mg MR PRN Qty: 1 RF: 1 sunitinib [Sutent] 50 MG capsule 50 mg PO QDAY Qty: 28 RF: 1 hydrocodone-acetaminophen [[place]] 5-325 mg tablet 1 tab PO Q6H PRN (Reason: pain (scale score 4-6)) Qty: 14 RF: 0 vit D3-folic [id number] 2,000-800-0.32 unit-mcg-mg Tablet 1 tab PO DAILY RF: 0 Curmin 500 mg capsule 500 PO BID RF: 0 ascorbic acid (vitamin C) [Vitamin C] 1,000 mg Tablet 500 mg PO BID RF: 0 Multi-Vitamin HP/Minerals QDAY RF: 0 Reishi Mushrooms 250 mg 3 PO TID RF: 0 liothyronine 25 mcg Tablet 25 mcg PO DAILY RF: 0 albuterol sulfate 90 mcg/actuation Hfa Aerosol Inhaler 2 puff INHALATION Q4-6H PRN (Reason: Shortness Of Breath) Qty: 1 RF: 6 Referrals: Ashley Dash ND [Primary Care Provider] -
--- NOTE | 2018-04-07 11:24 | ED_ITS ---
HPI - SOB/Dyspnea General Chief Complaint: Shortness of Breath/Dyspnea Stated Complaint: TROUBLE BREATHING,DEHYDRATED,THROWING UP Time Seen by Provider: 04/07/18 10:50 Source: patient Mode of arrival: wheelchair Limitations: no limitations History of Present Illness Patient is a 22-year-old male who has end stage renal cancer currently on hospice now. He is presenting with increased pain and shortness of breath. Mom says that he is dehydrated not have skin is cracking. He also has known ascites he has some pain in his abdomen. He is here with hospice nurse. He does have some shortness of breath as well, he is chronically on oxygen home. MD Complaint: shortness of breath Related Data Home Medications Medication Instructions Recorded Confirmed Curmin 500 PO BID 11/02/17 Multi-Vitamin HP/Minerals QDAY 11/02/17 Reishi Mushrooms 3 PO TID 11/02/17 ascorbic acid (vitamin C) [Vitamin 500 mg PO BID 11/02/17 11/02/17 C] vit D3-folic [id number] 1 tab PO DAILY 11/02/17 11/02/17 liothyronine 25 mcg PO DAILY 03/05/18 03/05/18 Previous Rx's Medication Instructions Recorded EPINEPHRINE (#EPI-PEN) 0.3 mg MR PRN #1 11/23/11 sunitinib [Sutent] 50 mg PO QDAY #28 cap 08/22/17 hydrocodone-acetaminophen [[place]] 1 tab PO Q6H PRN #14 tab 03/02/18 albuterol sulfate 2 puff INHALATION Q4-6H PRN #1 g 03/12/18 Allergies Allergy/AdvReac Type Severity Reaction Status Date / Time Bee Venom Allergy Intermediate SWELLING Uncoded 03/02/18 15:57 Review of Systems Review of Systems All systems reviewed & are unremarkable except as noted in HPI and below Constitutional Denies chills, Denies fever(s), Reports lethargy and Reports weakness Cardiovascular Denies chest pain, Denies syncope, Reports rapid heart rate and Reports dyspnea on exertion Respiratory Denies cough, Reports pain with cough and Reports dyspnea on exertion Gastrointestinal Gastrointestinal: Reports abdominal pain Musculoskeletal Comments: lower extremity edema Integumentary/Breasts Reports system reviewed and no additional complaints, except as docu Neurologic Denies syncope and Reports weakness [facility] Medical History Renal cancer (Acute) Surgical History No pertinent past surgical history (Acute) Social History Smoking Status: Former smoker Exam Initial Vital Signs Initial Vital Signs: Vital Signs Temperature 98.1 F 04/07/18 10:30 Pulse Rate 138 H 04/07/18 10:30 Respiratory Rate 20 04/07/18 10:30 Blood Pressure 126/80 04/07/18 10:30 Pulse Oximetry 96 04/07/18 10:30 GENERAL: Chronically ill young male HEENT: Head atraumatic,EOMI, pupils reactive, face symmetric CARDIOVASCULAR: Tachycardic no rubs RESPIRATORY: Breath sounds equal bilaterally, no wheezes rales or rhonchi. ABDOMEN: Soft, mild distention no fluid EXTREMITIES: Bilateral lower extremity lymphedema NEUROLOGICAL: Alert and oriented x4.Normal gait and speech. Cranial nerves II through XII grossly intact. SKIN: Warm, dry, no laceration, no petechiae, no rashes or lesions. Course Orders Ordered: ED Orders 04/07/18 13:31 US abdomen limited Stat Discontinued Medications Albuterol (Ventolin) 2.5 mg INH NOW ONE Stop: 04/07/18 12:42 Last Admin: 04/07/18 12:42 Dose: 2.5 mg Hydromorphone HCl (Dilaudid) 1 mg IV NOW ONE Stop: 04/07/18 11:18 Last Admin: 04/07/18 11:43 Dose: 1 mg Hydromorphone HCl (Dilaudid) 1 mg IV NOW ONE Stop: 04/07/18 12:40 Last Admin: 04/07/18 12:42 Dose: 1 mg Hydromorphone HCl (Dilaudid) 1 mg IV NOW ONE Stop: 04/07/18 15:06 Last Admin: 04/07/18 15:11 Dose: 1 mg Sodium Chloride (Normal Saline 0.9%) 1,000 mls @ 500 mls/hr IV BOLUS ONE Stop: 04/07/18 13:16 Last Infusion: 04/07/18 14:00 Dose: 0 mls/hr Admin: 04/07/18 11:42 Dose: 500 mls/hr Ondansetron HCl (Zofran) 4 mg IV NOW ONE Stop: 04/07/18 11:18 Last Admin: 04/07/18 11:43 Dose: 4 mg Ondansetron HCl (Zofran) 4 mg IV NOW ONE Stop: 04/07/18 12:40 Vital Signs - 8 hr 04/07/18 10:30 04/07/18 11:08 04/07/18 12:42 Temperature 98.1 F Pulse Rate 138 H 133 H 73 Respiratory Rate 20 19 14 Blood Pressure 126/80 Blood Pressure [Left Arm] 115/72 Pulse Oximetry 96 96 96 MDM - SOB/Dyspnea MDM Narrative Medical decision making narrative: I spoken with Dr. Luz Rizo, how this physician. She recommends IV fluids and pain control. Patient right now out of portable oxygen. Hospice made arrangements for [place] to deliver oxygen to the emergency department. Patient overall is feeling better with the fluids and Dilaudid. He says the IV pain medication helps more than the oral pain medication. He has generalized pain all over. His abdomen is soft. Ultrasound does not show a nothing fluid to be drained. Otherwise Dr. Gatica said she would do it at home if needed. Dr. Denis will arrange for Dilaudid LAUNCH OPERATOR at home. Family is agreeable to plan. Discharge Plan Departure Patient Disposition: Home Clinical Impression: Malignant neoplasm of kidney excluding renal pelvis Discharge Date/Time: 04/07/18 15:19 Interventions: ED Discharge Assessment Last Done: 04/07/18 15:52 Instructions: Kidney Cancer Activity Restrictions/Additional Instructions: *You have been diagnosed with renal cancer *What to do: Not enough fluid in abdomen to be drained. Hospice to set up IV pain medications for 2 at home *Continue to take medications as directed *Follow up with your primary care provider in 2-3 days *Return to ER if you should have any new, worsening or concerning symptoms Prescriptions: No Action EPINEPHRINE (#EPI-PEN) 0.3 mg MR PRN Qty: 1 RF: 1 sunitinib [Sutent] 50 MG capsule 50 mg PO QDAY Qty: 28 RF: 1 hydrocodone-acetaminophen [[place]] 5-325 mg tablet 1 tab PO Q6H PRN (Reason: pain (scale score 4-6)) Qty: 14 RF: 0 vit D3-folic [id number] 2,000-800-0.32 unit-mcg-mg Tablet 1 tab PO DAILY RF: 0 Curmin 500 mg capsule 500 PO BID RF: 0 ascorbic acid (vitamin C) [Vitamin C] 1,000 mg Tablet 500 mg PO BID RF: 0 Multi-Vitamin HP/Minerals QDAY RF: 0 Reishi Mushrooms 250 mg 3 PO TID RF: 0 liothyronine 25 mcg Tablet 25 mcg PO DAILY RF: 0 albuterol sulfate 90 mcg/actuation Hfa Aerosol Inhaler 2 puff INHALATION Q4-6H PRN (Reason: Shortness Of Breath) Qty: 1 RF: 6 Referrals: Ashley Dash ND [Primary Care Provider] -
[2018-04-07] MEDS: SODIUM CHLORIDE 0.9% 1,000 ML 500 ML IV (11:42)
[2018-04-07] MEDS: HYDROMORPHONE 2 MG INJ 1 MG IV ×2 (11:43→15:11)
[2018-04-07] MEDS: ONDANSETRON 4 MG/2 ML INJ IV (11:43)
--- NOTE | 2018-04-07 12:38 | PC.NURSE ---
medicated for comfort, also pt reporting pain at 5/10. vo may give dilaudid 1mg ivps.
[2018-04-07 12:42] VITALS: PULSE 73; RESP 14; O2SAT 96
[2018-04-07] MEDS: HYDROMORPHONE 1 MG INJ IV (12:42)
[2018-04-07] MEDS: ALBUTEROL 2.5 MG/3 ML NEB (ADULT) INH (12:42)
--- NOTE | 2018-04-07 13:31 | DI.US.S_ITS ---
PROCEDURE: US ABDOMEN LIMITED INDICATIONS: ascites TECHNIQUE: Real-time focused scanning was performed of the abdomen, with image documentation. COMPARISON: [facility], CT, CT ABDOMEN PELVIS W CON, 03/02/2018, 17:53. FINDINGS: Minimal to mild scattered ascites within all 4 quadrants. Fluid is surrounded by bowel without visualized the access point for paracentesis. IMPRESSION: Minimal to mild scattered ascites. Dictated by: Louann Hemphill M.D. on 04/07/2018 at 15:16 Approved by: Louann Hemphill M.D. on 04/07/2018 at 15:17
--- NOTE | 2018-04-11 17:30 | PC.NURSE ---
Called for pt follow up,no answer
--- NOTE | 2018-04-29 09:16 | ONC.NAV ---
* Sent bereavement card.
== END 2018-04-07 15:19 | disposition home or self-care (01) ==
PROVIDERS: Emergency Provider Emergency Medicine; PCP Naturopath
DX: C64.9 Malignant neoplasm of unspecified kidney, except renal pelvis (principal); R06.02 Shortness of breath; R11.10 Vomiting, unspecified
CPT/HCPCS: 76705; 94640; 96361; 96374; 96375; 96376; 99283; 99284; J1170; J2405; J7613